=== PATIENT | male | born 1965 | race Caucasian/White ===

== ENCOUNTER 2018-07-02 17:30 | Outpatient (RCR) | payer OTHER, SELFPAY ==
--- NOTE | 2018-03-15 09:45 | HP.OTEVAL ---
Patient's Visit Information MAURISIO MOISE is a 52 year old M, referred to Occupational Therapy by Kvng Alexandra MD, with a diagnosis of Laceration of Left finger with tendon involvement. Date of Evaluation: 03/15/18 Occupational Therapist: Jazmin Cochran, OTR/Kellie, CHT - Subjective Subjective: Pt states on February 03, 2018 he suffered a laceration to his left IF. Sx reapir February 12, 2018. pt has been using orthosis for day and night. Pt reports he is performing his scar massage daily. Pt is employed at [employer] and is currently working as a low voltage electrician and using compensation of no use of left IF when performing his tasks. - Pain left IF 0 Pain Intensity Range: 0, 3 - ROM ROM Comments: Right MCP 0/80 PIP 0/110 DIP 0/75. Left MCP 0/70 PIP 0/15 DIP 0/20 - Strength Blow Off Worker: right 125# left NT Lateral Pinch: right 18# left NT Tripod Pinch: right 16# Left NT - Sensation Index: Left 2.44 Sensation Comments: sensation WNL. pt reports a numb feeling on the tip of his IF but when tested pt demo sensation WNL - DASH-Disabilities of Arm, Shoulder& Hand DASH Sum: 58 - Goals Goal:100% adherence to protocol: Yes Goal:Daily scar massage when approriate: Yes Goal:ROM equal to unaffected hand: Yes Goal:Blow Off Worker/Pinch strength at least 75% of unaffected hand: Yes Goal:No pain with affected hand use: Yes Goal:Full use of affected hand in daily activities including: Yes Goal:Decrease scar hypersensitivity: Yes - Rehabilitation General Assessment: pt S/P 4 weeks and 3 days after extensor tendon repair. Pt demo a decrease in functional ROM of left IF. This limits pts functional use of left hand for bilateral hand tasks. pt limited with functional strength decreasing his ine. with BADLS, IADLS and work tasks. PT demo scar adhesions at this time. PT ed on scar mtg, use of elastomer to assist in decreasing scaring. pt may start AROM at 4 weeks per Kiara extensor Potocol. Pt ed on AROM ex to perform 6-8 x a day for 10 min. pt demo understanding of ex. Due to pts work schedule and up coming vacation he is limited with his time to attend therapy sessions. Rec. skilled OT service 2-3 x week for 4 weeks ( 12 visits). Rehabilitation Potential: Excellent - Anticipated Interventions Anticipated Interventions: A/AAROM/PROM, Strengthening, Scar Care, Triggerpoint Release, Modalities, Orthoses, Fine Motor Coord/Maikol - Visit Plan Frequency: 2-3x /Week Duration: 4 Weeks TEXT: Thank you for the opportunity to evaluate your patient. For Medicare and Medicare HMO plans, please review the plan of care and approve it. It will need to be FAXED BACK to us at [phone] for Medicare purposes. Please let me know if there are questions or concerns regarding this plan of care. Physician Signature: Date:
--- NOTE | 2018-05-07 16:28 | HP.OTREVAL ---
Kvng Alexandra MD, It has been my pleasure to treat MAURISIO MOISE over the last 10 visits for Laceration of Left finger with tendon involvement. Please see the progress note below for an update on the occupational therapy plan of care! Subjective: pt. reports he is going to [facility] tomorrow. pt. reports that L finger has been feeling sore for unknown reasons. Objective/Function: pt. demo 75 degree of PIP flexion in L UE 2nd digit. pt. program services assistant strength in L UE hand is 89 Plan Frequency: 2-3x /Week Duration: 2 Weeks Plan: cont POC Anticipated Interventions Anticipated Interventions: A/AAROM/PROM, Strengthening, Scar Care, Triggerpoint Release, Modalities, Orthoses, Fine Motor Coord/Maikol Please do not hesitate to contact me at [phone] by phone or if you have questions or concerns regarding this new plan of care! Sincerely, Jazmin Cochran, OTR/L, CHT
--- NOTE | 2018-07-02 17:17 | HP.OTDCSUM ---
HP - OT D/C Summary It has been my pleasure to treat MAURISIO MOISE under orders from Kvng Alexandra MD, for the diagnosis of Laceration of Left finger with tendon involvement for a total of 21 visit(s). Please see the following information for a summary of their discharge status. - Overall Improvement % Improvement: 98 - Objective Objective/Function: left publishing manager 115#. left lat.pinch 18#. Left tripod pinch 16#. left PIP -10/85. left DIP 0/55. Pt demo a functional composite fist and return of his functional strenght for ADLs, IADLs and work tasks. - Goals Patient Goals: Regain Mobility, Regain Strength, Return to Work, Improve Fine Motor Skills, Use Hand/Wrist/Arm Normally Again, Sleep Better Goal:100% adherence to protocol: Yes Goal:Daily scar massage when approriate: Yes Goal:ROM equal to unaffected hand: Yes Goal:Manager [employer]/Pinch strength at least 75% of unaffected hand: Yes Goal:No pain with affected hand use: Yes Goal:Full use of affected hand in daily activities including: Yes Goal:Decrease scar hypersensitivity: Yes - D/C Information Discharge Comments: Client was seen for OT following a left IF injury. Client completed therapys session. Client has met functional goals in OT and reports ind. with all BADLs and IADLS. Client ed. to cont. with end range stretch as needed. Client demo understanding of HEP and is D/C at this time. Client can call therapist with questions as needed. If there are questions or concerns regarding this patient's occupational therapy, please fell free to call me at [phone]. Thank you for the referral of this patient. Sincerely, Jazmin Cochran, OTR/L, CHT
== END 2018-07-02 19:00 | disposition home or self-care (01) ==
LOC: OT 17:30
PROVIDERS: Family Provider Family Medicine; PCP Family Medicine; Visit Provider Orthopaedic Surgery
DX: S61.219D Laceration without foreign body of unspecified finger without damage to nail, subsequent encounter (principal)
CPT/HCPCS: 97035; 97110; 97140; 97166; 97530; 97760

== ENCOUNTER 2019-03-13 16:00 | Outpatient (RCR) | payer OTHER, SELFPAY ==
--- NOTE | 2018-11-08 08:07 | HP.OTEVAL_ITS ---
Patient's Visit Information MAURISIO MOISE is a 52 year old M, referred to Occupational Therapy by Kvng Alexandra MD, with a diagnosis of left intrisic muscle tightness. Date of Evaluation: 11/07/18 Occupational Therapist: Jazmin Cochran, OTAnnie/Kellie, CHT - Subjective Subjective: This 52 year old male was seen for intial OT eval following a dx of intrinsic muscle tightness. Pt is currently 48 hours s/p intrinsic release- pt arrives demo good ROM and healing incision. Incision is clean and dry. - ROM MP: left IF 0/85 right 0/80 PIP: left IF -30/75 right 0/110 DIP: left IF 0/50 right 0/70 ROM Comments: pt states he does feel the stitches - Strength Business Solutions Consultant: right 135# left 120# Lateral Pinch: right 30# left 22# Tripod Pinch: right 24# left 14# - Sensation Sensation Comments: denies - Quick DASH-Disab of Arm,Shoulder& Hand Quick DASH Score: 31.6650 - Goals Goal:Daily scar massage when approriate: Yes Goal:ROM equal to unaffected hand: Yes Goal:Business Solutions Consultant/Pinch strength at least 75% of unaffected hand: Yes Goal:No pain with affected hand use: Yes Goal:Full use of affected hand in daily activities including: Yes Goal:Decrease scar hypersensitivity: Yes - Rehabilitation General Assessment: Pt currely 48 hours s/p intrisic release- pt demo a decrease in ROM and strength along with newly healing incisions. PT would benefit from skilled OT services 1-2x week for 12 weeks for pt to regain full ROM and strength of left hand to return pt to [facility]. Today therapist checked incison, and review ROM ex. pt demo understanding of ex and agrees to POC. Rehabilitation Potential: Excellent - Anticipated Interventions Anticipated Interventions: A/AAROM/PROM, Strengthening, Edema Control, Scar Care, Wound Care, Modalities, Orthoses - Visit Plan Frequency: 1-2x /Week Duration: 3 Months TEXT: Thank you for the opportunity to evaluate your patient. For Medicare and Medicare HMO plans, please review the plan of care and approve it. It will need to be FAXED BACK to us at [phone] for Medicare purposes. Please let me know if there are questions or concerns regarding this plan of care. Physician Signature: Date:
--- NOTE | 2018-12-10 16:31 | OTREVAL_ITS ---
Kvng Alexandra MD, It has been my pleasure to treat MAURISIO MOISE over the last 7 visits for left intrisic muscle tightness. Please see the progress note below for an update on the occupational therapy plan of care! Subjective: pt states he has been using his night brace on- and using LMB brace- . sees a week from today. feels he is happy with the flexion results but would like his finger to be a little straighter. Objective/Function: pt continues to demo a -20* left IF PIP ext lag. this is a 5* increase ext lag from last visit but worked all day. passive PIP ext of IF -7*. IF PIP Flex 90. IF DIP 0/55*. Pt is using gutter splint at night and LMB during the day when he can. 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 pt t-putty to strengthen extensors/and reverse blocking. Pts concers are with the decrease in PIP ext of IF. Plan Frequency: 1-2x /Week Duration: 3 Months Plan: Pt to use gutter splint at night and LMB when he can during the day. Anticipated Interventions Anticipated Interventions: A/AAROM/PROM, Strengthening, Edema Control, Scar Care, Wound Care, Modalities, Orthoses Please do not hesitate to contact me at [phone] by phone or if you have questions or concerns regarding this new plan of care! Sincerely, Jazmin Cochran, OTR/L, CHT
--- NOTE | 2019-03-14 07:49 | HP.OTDCSUM_ITS ---
HP - OT D/C Summary It has been my pleasure to treat MAURISIO MOISE under orders from Kvng Alexandra MD, for the diagnosis of left intrisic muscle tightness for a total of 15 visit(s). Please see the following information for a summary of their discharge status. - Overall Improvement % Improvement: 95 - Objective Objective/Function: MCP +20/. PIP -20/90. DIP 0/60. left general superintendent strength 100# - Goals Patient Goals: Regain Mobility, Regain Strength, Improve Fine Motor Skills, Use Hand/Wrist/Arm Normally Again Goal:Daily scar massage when approriate: Yes Goal:ROM equal to unaffected hand: Yes Goal:Manager Of Finance/Pinch strength at least 75% of unaffected hand: Yes Goal:No pain with affected hand use: Yes Goal:Full use of affected hand in daily activities including: Yes Goal:Decrease scar hypersensitivity: Yes - Plan Plan: D/C - D/C Information Discharge Comments: pt was seen for 15 visits following a left IF extensor tendon injury/repair. pt has met goals in OT and pt is advised to return to [employer] occupations as needed, or to call if a problem occurs pt demo understanding. If there are questions or concerns regarding this patient's occupational therapy, please fell free to call me at [phone]. Thank you for the referral of this patient. Sincerely, Jazmin Cochran, OTR/L, CHT
== END 2019-03-13 19:00 | disposition home or self-care (01) ==
LOC: OT 16:00
PROVIDERS: Family Provider Family Medicine; PCP Family Medicine; Referring Provider Orthopaedic Surgery; Visit Provider Orthopaedic Surgery
DX: M62.40 Contracture of muscle, unspecified site (principal)
CPT/HCPCS: 97110; 97166; 97530

== ENCOUNTER → 2024-09-03 | Outpatient (CLI) | payer BC, SELFPAY ==
--- NOTE | 2024-09-03 14:30 | CT_ITS ---
PROCEDURE: LOW DOSE CT LUNG SCREENING TECHNIQUE: Low Dose CT Lung Screening without contrast COMPARISON: None. FINDINGS: PULMONARY NODULES: (Only nodules >6mm are reported) Nodules described below are on series 1 unless otherwise specified. Pulmonary Nodules: No concerning pulmonary nodules. Hardware:None Lymph Nodes:No mediastinal hilar or axillary lymphadenopathy. Heart and Vasculature:Normal heart size. No pericardial effusion.Thoracic aorta and pulmonary arteries have normal contours; noncontrast technique limits evaluation. Coronary Artery Calcifications: Present Lungs and Airways: The lungs are normally expanded and clear. Pleura:No pleural effusion. No pneumothorax. Upper Abdomen:Visualized portions of the upper abdominal viscera are unremarkable. Bones:Degenerative changes of the thoracic spine. CT/Low Dose CT Lung Screening IMPRESSION: 1. BASED ON THE ACR LUNG RADS FOR THE MOST SUSPICIOUS NODULE (IF ANY) DESCRIBE D IN THIS REPORT, THE OVERALL LUNG RADS SCORE IS 1. 1 - NEGATIVE. RECOMMEND 12-MONTH SCREENING LDCT.. 2. SMOKING CESSATION COUNSELING IS RECOMMENDED IF THE PATIENT IS STILL SMOKING . 3. OTHER SIGNIFICANT FINDINGSNone. One or more dose reduction techniques were used (e.g., Automated exposure contr ol, adjustment of the mA and/or kV according to patient size, use of iterative reconstruction technique). The following information is provided for reference:Lung-RADS 2021 Assessment C ategories. Additional information involving Lung-RADS is available at www.acr.org. 0-INCOMPLETE 1-NEGATIVE:No nodules or definitely benign nodules. Complete, central, popcorn , or centric ring calcifications OR fat containing 2-BENIGN APPEARANCE (based on imaging features or indolent behavior). Juxtaple ural nodule: < 10mm AND solid; smooth margins; oval, entiform, or triangular shape Solid nodule: <6mm at baseline or new< 4mm Part solid Nodule: < 6mm total mean diameter at baseline Nonsolid nodule:(GGN) < 30mm OR >=30mm stable or slowly growing Airway nodule, subsegmental at baseline, new, or stable Category 3 nodule stabl e or decreased in size at 6-month follow-up CT or Category 3 or 4A nodules that resolve on follow-up OR category 4B findings prov en to be benign following diagnotic work up. 3 - Probably Benign (Based on imaging features or behavior) Solid Nodule: >= 6 to <8mm at baseline OR new 4 to <6mm Part-solid nodule: >= 6mm toal mean diam. with solid component <6mm at baseline OR new < 6mm total mean diam. Non-solid nodule: GGN >= 30mm at baseline or new Atypical pulmonary cyst: Growing cystic component (mean diam.) of thick-walled cyst Category 4A nodule stable or decreased in size at 3-month follow-up CT (excl.ai rway). 4A - Suspicious Solid nodule: >=8 to < 15mm at baseline OR growing < 8mm OR new 6 to < 8mm Part solid nodule: >= 6mm total mean diam. w/ solid component >=6mm to < 8mm at baseline OR new or growing < 4mm solid component Airway nodule, segmental or more proximal at baseline or new Atypical pulmonary cyst: Thick-walled OR multilocular at baseline OR becomes mu ltilocular 4B - Very Suspicious Airway nodule, segmental or more proximal, and stable or growing Solid nodule: >= 15mm at baseline OR new or growing >= 8mm Part solid nodule: Solid component >= 8mm OR new or growing >= 4mm solid compon ent Atypical pulmonary cyst: Thick-walled with growing wall thickness/nodularity OR Growing multilocular (mean diam.) OR Multilocular with increased loculation or new/increased opacity Slow-growing solid or part solid nodule w/ growth over multiple screening exams 4X - Very Suspicious Category 3 or 4 nodules with additional features that increase the suspicion fo r lung cancer. S - Clinically Significant or potentially significant findings (non-lung cancer ) Reading Location: [id number]
== END | disposition home or self-care (01) ==
LOC: CT 14:29
PROVIDERS: PCP Physician Assistant; Referring Provider Nurse Practitioner Family; Visit Provider Nurse Practitioner Family
DX: Z87.891 Personal history of nicotine dependence (principal); Z12.2 Encounter for screening for malignant neoplasm of respiratory organs
CPT/HCPCS: 71271

== ENCOUNTER → 2024-09-26 | Outpatient (CLI) | payer BC, SELFPAY ==
[2024-09-29 09:08] LABS: PSA, Free 0.47 ng/mL; PSA, Free % 19.3 % (.)
== END | disposition home or self-care (01) ==
PROVIDERS: PCP Physician Assistant; Referring Provider Urology; Visit Provider Urology
DX: R97.20 Elevated prostate specific antigen [PSA] (principal)
CPT/HCPCS: 36415; 84153; 84154

== ENCOUNTER → 2025-03-31 | Outpatient (CLI) | payer BC, SELFPAY ==
[2025-03-31 18:21] LABS: PSA,Total- Diagnostic 3.88 ng/mL (0.00-4.00)
== END | disposition home or self-care (01) ==
LOC: LAB 15:54
PROVIDERS: PCP Physician Assistant; Referring Provider Urology; Visit Provider Urology
DX: R97.20 Elevated prostate specific antigen [PSA] (principal)
CPT/HCPCS: 36415; 84153